=== PATIENT | male | born 1975 | race Caucasian/White ===

== ENCOUNTER 2021-06-18 04:35 | Day surgery (SDC) | payer OTHER ==
[2021-06-15 16:46] VITALS: BMI 23.6
[2021-06-18] MEDS ORDERED: LIDOCAINE HCL/PF 2% SDV 5ML VIAL ONE (07:21)
[2021-06-18] MEDS ORDERED: DEXAMETHASONE SOD PHOSPHATE 4 MG/1 ML VIAL ONE (07:21)
[2021-06-18] MEDS ORDERED: PROPOFOL 20 ML ONE (07:21)
[2021-06-18] MEDS ORDERED: MIDAZOLAM HCL 2 MG/2 ML SINGLE DOSE VIAL ONE ×2 (07:21→07:40)
[2021-06-18] MEDS ORDERED: BUPIVACAINE HCL/PF 0.5% (5MG/ML) 10 ML VIAL ONE (07:39)
[2021-06-18] MEDS ORDERED: BUPIVACAINE LIPOSOME/PF (EXPAREL) 266 MG/20 ML VIAL ONE (07:40)
[2021-06-18] MEDS ORDERED: ROCURONIUM BROMIDE 50 MG/5 ML SYRINGE ONE (08:19)
[2021-06-18] MEDS ORDERED: ceFAZolin SODIUM 1 GM VIAL ONE (08:25)
[2021-06-18] MEDS ORDERED: ceFAZolin SODIUM 1 GM VIAL IVPB ONE (08:25)
[2021-06-18] MEDS ORDERED: ONDANSETRON 4 MG/2 ML VIAL IVPUSH PRN (08:49)
[2021-06-18] MEDS ORDERED: oxyCODONE HCL 5 MG TABLET PO PRN (08:49)
[2021-06-18] MEDS ORDERED: LACTATED RINGERS SOLUTION 1,000 ML IV SCH (09:00)
[2021-06-18] MEDS ORDERED: NEOSTIGMINE METHYLSULFATE 0.5 MG/ML - 10 ML MDV ONE (09:37)
[2021-06-18] MEDS ORDERED: KETOROLAC TROMETHAMINE 30 MG/1 ML VIAL ONE (09:37)
[2021-06-18] MEDS ORDERED: GLYCOPYRROLATE 0.2 MG/1 ML VIAL ONE (09:37)
[2021-06-18] MEDS: oxyCODONE HCL 5 MG TABLET PO PRN ×2 (11:32→12:30)
[2021-06-18] MEDS ORDERED: oxyCODONE HCL 5 MG TABLET ONE ×2 (11:34→12:31)
[2021-06-18 16:44] VITALS: BP 165/88; PULSE 81; TEMP 98.6
== END 2021-06-18 17:00 | disposition home or self-care (01) ==
LOC: JASU-SURG 04:35
PROVIDERS: ATTEND Surgery
PROC: 8E0W4CZ Robotic Assisted Procedure of Trunk Region, Percutaneous Endoscopic Approach (ICD-10-PCS; 2021-06-18)
PROC: 0YU54JZ Supplement Right Inguinal Region with Synthetic Substitute, Percutaneous Endoscopic Approach (ICD-10-PCS; principal; 2021-06-18 08:00)
DX: K40.91 Unilateral inguinal hernia, without obstruction or gangrene, recurrent (principal)
CPT/HCPCS: 49651; S2900; 94760

== ENCOUNTER 2022-01-10 04:19 | Day surgery (SDC) | payer OTHER ==
[2022-01-04 17:13] VITALS: BMI 23.6
[2022-01-10] MEDS ORDERED: MIDAZOLAM HCL 2 MG/2 ML SINGLE DOSE VIAL ONE ×2 (14:34→14:40)
[2022-01-10] MEDS ORDERED: FENTANYL CITRATE/PF 50 MCG/ML VIAL ONE (14:34)
[2022-01-10] MEDS ORDERED: PROPOFOL 20 ML ONE (14:42)
[2022-01-10 16:33] VITALS: RESP 20
[2022-01-10 16:48] VITALS: BP 134/74; PULSE 64; TEMP 96
== END 2022-01-10 16:30 | disposition home or self-care (01) ==
LOC: JASU-SURG 04:19
PROVIDERS: ATTEND Urology
PROC: 0TF3XZZ Fragmentation in Right Kidney Pelvis, External Approach (ICD-10-PCS; principal; 2022-01-10 13:30)
DX: N20.0 Calculus of kidney (principal)

== ENCOUNTER 2022-04-19 04:49 | Day surgery (SDC) | payer OTHER ==
[2022-04-13 13:43] VITALS: BMI 22.9
[2022-04-19 13:05] VITALS: TEMP 97.7
[2022-04-19 13:45] VITALS: BP 153/97; PULSE 65; RESP 19
== END 2022-04-19 13:42 | disposition home or self-care (01) ==
LOC: JASU-ENDO 04:49
PROVIDERS: ATTEND Student in an Organized Health Care Education/Training Program
PROC: 0DB78ZX Excision of Stomach, Pylorus, Via Natural or Artificial Opening Endoscopic, Diagnostic (ICD-10-PCS; 2022-04-19)
PROC: 0DB68ZX Excision of Stomach, Via Natural or Artificial Opening Endoscopic, Diagnostic (ICD-10-PCS; 2022-04-19)
PROC: 0DB28ZX Excision of Middle Esophagus, Via Natural or Artificial Opening Endoscopic, Diagnostic (ICD-10-PCS; 2022-04-19)
PROC: 0DB38ZX Excision of Lower Esophagus, Via Natural or Artificial Opening Endoscopic, Diagnostic (ICD-10-PCS; principal; 2022-04-19 12:00)
DX: K21.00 Gastro-esophageal reflux disease with esophagitis, without bleeding (principal); K29.50 Unspecified chronic gastritis without bleeding; B96.81 Helicobacter pylori [H. pylori] as the cause of diseases classified elsewhere
CPT/HCPCS: 88305-TC; 88342-TC

== ENCOUNTER 2022-08-09 04:59 | Day surgery (SDC) | payer OTHER ==
[2022-08-05 13:35] VITALS: BMI 22.9
[2022-08-09 13:14] VITALS: RESP 18
[2022-08-09 14:59] VITALS: BP 140/76; PULSE 63
[2022-08-09 15:44] VITALS: TEMP 98
== END 2022-08-09 14:55 | disposition home or self-care (01) ==
LOC: JASU-ENDO 04:59
PROVIDERS: ATTEND Student in an Organized Health Care Education/Training Program
PROC: 0DBH8ZX Excision of Cecum, Via Natural or Artificial Opening Endoscopic, Diagnostic (ICD-10-PCS; principal; 2022-08-09 13:30)
DX: Z12.11 Encounter for screening for malignant neoplasm of colon (principal); D12.0 Benign neoplasm of cecum; K62.1 Rectal polyp
CPT/HCPCS: 88305-TC